=== PATIENT | female | born 1960 | race Caucasian/White ===

== ENCOUNTER 2018-10-13 06:16 | Emergency (ER) | payer MEDICAID ==
[~2018-10-13] VITALS: Ht 139.7 cm; Wt 63.5 kg
[2018-10-13 06:25] VITALS: BP 152/88
== END 2018-10-13 08:19 | disposition home or self-care (01) ==
LOC: ER 06:16
DX: R04.0 Epistaxis (principal); I10 Essential (primary) hypertension; Z86.39 Personal history of other endocrine, nutritional and metabolic disease